=== PATIENT | female | born 1975 | race Caucasian/White ===

== ENCOUNTER → 2024-08-24 13:02 | Outpatient (REF) | payer OTHER, SELFPAY | LOC: RAD 13:02 | PROVIDERS: ATTENDING PHYSICIAN Family Medicine | DX: R10.9 Unspecified abdominal pain (principal) | CPT/HCPCS: 74178; Q9967 ==

== ENCOUNTER → 2024-09-05 09:57 | Outpatient (REF) | payer OTHER, SELFPAY | LOC: HWRAD 09:57 | PROVIDERS: ATTENDING PHYSICIAN Family Medicine | DX: R19.00 Intra-abdominal and pelvic swelling, mass and lump, unspecified site (principal) | CPT/HCPCS: 76705 ==

== ENCOUNTER → 2025-01-08 13:50 | Outpatient (REF) | payer OTHER, SELFPAY | LOC: HWWDC 13:50 | PROVIDERS: ATTENDING PHYSICIAN Family Medicine | DX: Z12.31 Encounter for screening mammogram for malignant neoplasm of breast (principal) | CPT/HCPCS: 77063; 77067 ==

== ENCOUNTER → 2025-01-31 13:13 | Outpatient (REF) | payer OTHER, SELFPAY | LOC: HWRAD 13:13 | PROVIDERS: FAMILY PHYSICIAN Family Medicine | DX: N93.9 Abnormal uterine and vaginal bleeding, unspecified (principal) | CPT/HCPCS: 76830; 76856 ==

== ENCOUNTER 2025-03-02 17:56 | Emergency (ER) | payer OTHER, SELFPAY ==
[2025-03-02 17:57] VITALS: BP 136/79
[2025-03-02 18:27] LABS: Hematocrit 38.6 % (37.0-47.0); Hemoglobin 13.1 g/dL (12.0-16.0); Mean Corp Hgb Conc. 33.9 g/dL (33.0-37.0); Mean Corpuscular Volume 84.6 fL (81.0-99.0); Nucleated Red Blood Cells % 0 %; Platelet Count 328 10^3/uL (130-400); Red Cell Dist. Width 12.5 % (11.5-14.5)
[2025-03-02 18:41] LABS: Urine Character Clear (Clear)
[2025-03-02 18:53] LABS: Urine Red Blood Cell 0-2 /HPF (0-2); Urine Squamous Cell 0-2 /LPF (Few)
[2025-03-02 19:01] LABS: ALT (SGPT) 16 U/L (0-35); AST (SGOT) 18 U/L (14-36); Albumin 5.0 g/dl (3.5-5.0); Alkaline Phosphatase 78 U/L (38-126); Blood Urea Nitrogen 12 mg/dl (7-17); Calcium 9.8 mg/dl (8.4-10.2); Carbon Dioxide 27 mmol/L (22-30); Chloride 103 mmol/L (98-107); Glucose 114 mg/dl (70-99); Lipase 34 U/L (23-300); Potassium 4.1 mmol/L (3.5-5.1); Sodium 139 mmol/L (135-145); Total Protein 8.3 g/dl (6.3-8.2); eGFR > 60.00
[2025-03-02 19:06] LABS: HCG, Serum Qualitative Screen Negative
[2025-03-02 20:57] VITALS: BP 141/83; BMI 20.4
--- NOTE | 2025-03-02 21:00 | EDRN ---
Pt noted b/l abdominal pain in June that increased when she exercised. Pt went to her doctor and had a CT done in August that showed 2 hernias on the right side, nothing on the left side. Pt then had an US that confirmed the findings. Pt
went to a surgeon in September or October and was told she should have surgery but it is not emergent. Pain intermittent. Pt noted increased pain in L abdomen about 3 weeks ago and called her doctor who prescribed a 5 day course of omeprazole. On day
3, pt noted pain in b/l ribs/epigastric area so pt called her doctor and has an appointment on Wednesday. Pt adds she also has lower back pain that started in November but she has a hx of back pain and feels it is unrelated to what has been going on. Pt
noted dark urine yesterday morning, says she drinks a lot of fluid but it was also orange/brown in color. Urine normal throughout the day. Pt also noted b/l groin pain yesterday and between her ribs which prompted this ED visit. Pt denies cp,
sob, n/v/d/c, fever/chills/cough, weakness, dizziness
--- NOTE | 2025-03-02 21:11 | ED.GENMED ---
History of Present Illness
General
Chief Complaint: Abdominal Symptoms
Source: patient
Exam Limitations: none
Time Seen by Provider: 03/02/25 20:50
Nursing documentation reviewed up to this point in time: agreed with
History of Present Illness
History of Present Illness:
The patient is a 49-year-old female presenting with mid epigastric and lower sternal area pain, pain both sides abdomen, pain left flank and lower back, dark urine.
Past 4 days patient has been experiencing pain in right abdomen radiating down to the groin; yesterday, similar pain started left abdomen radiating to the left groin. Past few days has also had pain in the left flank and lower back, worse with
certain movements and worse in the morning. Noted dark urine 2 days ago, after drinking more water urine lightens up to normal. This a.m. did note dark urine again. Denies n/v/d/c. Denies fever
Past History
Past History
ED Past Medical History: Other (Uterine fibroids, endometriosis)
ED Past Surgical History: Cholecystectomy
Social History
Tobacco: Non-smoker
Alcohol: None
Personal:
Living: with family
Employment: Employed (RN)
Review of Systems
Review of Systems
Allergies reviewed?: Yes
All Other Systems: ROS reviewed and negative except as documented in HPI and ROS
Constitutional: Denies fever
Respiratory: Denies trouble breathing
Cardiac: Denies chest pain
ABD/GI: Reports abdominal pain; Denies nausea, vomiting, diarrhea, constipated, bloody stools, black stools or anorexia
: Reports flank pain (Left); Denies dysuria, frequency, difficulty voiding or urgency
Musculoskeletal: Reports back pain (Left lower)
Skin: Reports no symptoms
Neurological: Reports no symptoms
Phy Exam
Physical Exam
Physical Exam:
GENERAL: No acute distress. A&Ox3.
CONSTITUTIONAL: Afebrile.
EYES: clear, conjunctivae normal
ENMT: moist mucus membranes, Pharynx nl
RESPIRATORY: Regular respirations, nonlabored, lungs clear.
CARDIOVASCULAR: Regular rate and rhythm, no murmurs, no rubs.
GI: Soft, minimal tenderness to palpation, nondistended, normal BS
MUSCULOSKELETAL: No spinal bony tenderness. Back is nontender to palpation. No flank tenderness to percussion. Moves with ease. Well perfused.
SKIN: Warm, dry, pink
PSYCH: Normal mood and affect. Well kept, interactive and appropriate
NEUROLOGIC: Awake, alert and oriented. No focal neurological deficits
Course
Orders/Labs/Results
Orders:
Orders
03/02/25 18:03
Test Result ONCE
03/02/25 18:09
Complete Blood Count/With Diff Urgent
Comprehensive Metabolic Panel Urgent
HCG, Serum Qualitative Screen Urgent
Comment: Notify provider if positive test present
Lipase Urgent
03/02/25 18:13
Urinalysis Reflex To Culture Urgent
Date Specimen was Collected: 03/02/25
Time Specimen was Collected: 18:02
Urine Microscopic Reflex Cult Urgent
Urine Culture Urgent
TOM Source: U
Specimen Description:
Date Specimen was Collected: 03/02/25
Time Specimen was Collected: 18:02
03/02/25 21:10
CT Abd/pel W Iv And Oral Contr Urgent
Comment:
Reason For Exam: generalized abdominal pain
Iohexol [Omnipaque] See Protocol PO NOW STA
03/02/25 21:11
0.9% Sodium Chloride 500 ml [Nss] 500 ml IV BOLUS
03/03/25 00:59
Pantoprazole [Protonix IV] 80 mg IV NOW STA
Abnormal Lab Results
03/02/25 03/02/25
18:09 18:13
Glucose 114 H mg/dl
(70-99)
Total Protein 8.3 H g/dl
(6.3-8.2)
Leukocyte Esterase Rfl 1+ A
(Negative)
Urine Bacteria (Reflex) Few A
(Negative)
03/02/25 18:09
03/02/25 18:09
Vital Signs
Initial and Last Documented VS:
Initial Vital Signs
Temp Pulse Resp BP Pulse Ox
98.3 F 91 20 136/79 100
03/02/25 17:57 03/02/25 17:57 03/02/25 17:57 03/02/25 17:57 03/02/25 17:57
Last Documented Vital Signs
Temp Pulse Resp BP Pulse Ox
98.3 F 61 14 120/64 100
03/02/25 20:57 03/03/25 00:30 03/03/25 00:30 03/03/25 00:30 03/03/25 00:30
MDM/Problems Addressed
Differential Diagnosis Includes:
Kidney stones, musculoskeletal back pain, GERD
MDM/Problems Addressed:
The patient is a 49-year-old female presenting with mid epigastric and lower sternal area pain, pain both sides abdomen, pain left flank and lower back, dark urine.
Past 4 days patient has been experiencing pain in right abdomen radiating down to the groin; yesterday, similar pain started left abdomen radiating to the left groin. Past few days has also had pain in the left flank and lower back, worse with
certain movements and worse in the morning. Noted dark urine 2 days ago, after drinking more water urine lightens up to normal. This a.m. did note dark urine again. Denies n/v/d/c. Denies fever
She had [facility] exam with normal US 01/31/25 (report reviewed)
Afebrile, NAD
Plan:
1. Order a computed tomography scan with both oral and intravenous contrast to evaluate any underlying conditions such as renal calculi, masses, or bowel abnormalities.
2. Start a trial of a proton pump inhibitor, such as Pantoprazole (Protonix), to manage potential gastroesophageal reflux disease or peptic pathology.
3. Referral to a personal health coach for further evaluation and management as needed, especially if proton pump inhibitor therapy yields results.
4. Provide reassurance that all blood results are normal and that the computed tomography scan is a precautionary measure to rule out life-threatening conditions.
5. Advise patient about potential musculoskeletal-related back pain and the possibility of back pain being unrelated to abdominal pain.
10:20 PM:
CBC, CMP normal
hCG negative
UA negative
03/03/2025, 1:[address] abdomen pelvis with IV and p.o. contrast, radiology report read: No acute findings. Copy of result given to pt
Plan: Treat for GERD, treat for musculoskeletal back pain
Patient states she was taking Prilosec at 1 point and after taking it for 3 days her stomach felt worse so she stopped it for a few days and then started up again and she developed the same abdominal discomfort so she stopped it altogether.
Patient states she was camping sleeping on a mattress on the ground for 3 days this week, this may be contributing to her back pain. She states her back pain bothers her when she turns in bed at night. She also states the back pain is worse in the
morning and gets better as she goes through the day.
Pt ambulated out with normal gait at discharge
*Pulse Oximetry
SaO2: 100
Oxygen Mode of Delivery: Room air
Patient hypoxic: no
*Critical Care Note
Total Time (30-74mins, 75-104mins- exclusive of procedures): Not Applicable
ED Attending Note
-
Portions of this chart may have been created with voice recognition software.� Occasional wrong word or��sound alike� substitutions may have occurred due to the inherent limitations of voice recognition software.
Discharge Plan
Departure
Patient Disposition: Home (Routine Discharge)
Date of Disposition: 03/03/25
Time of Disposition: 01:04
Patient with high blood pressure during this ER visit?: No
Condition: Good
Discharge Problem:
Acute epigastric pain, Low back pain
Instructions: Low back pain - ED (DC), Abdominal Pain
Prescriptions:
New
pantoprazole [Protonix] 40 mg tablet,delayed release (DR/EC)
40 mg PO DAILY Qty: 30 0RF
No Action
multivitamin Tablet
1 tab PO DAILY
cholecalciferol (vitamin D3) [Vitamin D3] 50 mcg (2,000 unit) Tablet
50 mcg PO DAILY
Patient Comments:
pt says she takes this when she remembers, sometimes 3xs/week
Referrals:
Beau Dominguez MD [Active, Gastroenterology] - Next open appointment
Charli Chavez DO [Family Provider, Family Practice] - Follow up in 2-3 days
Activity Restrictions/Additional Instructions:
As we discussed, for the mid upper abdominal pain, it may be GERD/reflux, I sent a prescription to your pharmacy for Protonix.
Call the GI doctor's office Wednesday and make next available appointment.
Then back pain is most likely muscular or arthritis pain. Ibuprofen 400 mg (with food) every 6 hours as needed for pain.
See your primary doctor if your back pain is not much improved in 2 weeks with the Ibuprofen, gentle stretches.
Interventions
Interventions:
*Risk Screen - Suicide Last Done: 03/02/25 17:57
*General Assessment Last Done: 03/02/25 17:57
*Neglect/Abuse Screening Last Done: 03/02/25 17:57
*ED- Fall Risk Assessment Last Done: 03/02/25 20:57
*Nursing Disposition Last Done: 03/03/25 01:24
KR-Okqmon-Zuliwvcgbe Assessment Last Done: 03/02/25 20:57
Discharge Date and Time
Discharge Date/Time: 03/03/25 01:24
Print Language: NEPALI
[2025-03-02] MEDS: NSS 500 IV (21:29)
[2025-03-02] MEDS: OMNIPAQUE 50 ML PO (21:30)
[2025-03-02 22:51] VITALS: BP 119/74
[2025-03-02 23:19] VITALS: BP 158/89
[2025-03-03 00:30] VITALS: BP 120/64
[2025-03-03] MEDS: PROTONIX IV 80 MG IV (01:12)
== END 2025-03-03 01:24 | disposition home or self-care (01) ==
LOC: EMR 17:56
PROVIDERS: Emergency Medicine; EMERGENCY PHYSICIAN Student in an Organized Health Care Education/Training Program; FAMILY PHYSICIAN Family Medicine
DX: R10.13 Epigastric pain (principal); M54.50 Low back pain, unspecified
CPT/HCPCS: 99284; 96374; 96361; 74177; 80053; 81003; 81015; 83690; 84703; 85025; 87086; Q9967

== ENCOUNTER → 2025-03-22 10:37 | Outpatient (REF) | payer OTHER, SELFPAY | LOC: HWRAD 10:37 | PROVIDERS: ATTENDING PHYSICIAN Physician Assistant Medical | DX: M54.50 Low back pain, unspecified (principal) | CPT/HCPCS: 72110 ==